=== PATIENT | female | born 1985 | race Caucasian/White ===

== ENCOUNTER 2016-08-18 21:13 | Inpatient (IN) | payer OTHER ==
[2016-08-19 14:03] LABS: Hematocrit 40 % (35-47); Hemoglobin 13.7 g/dl (12.0-16.0); Mean Corpuscular HGB Conc 34 g/dl (31-36); Mean Corpuscular Hemoglobin 28 pg (27-31); Mean Corpuscular Volume 81 fL (80-97); Mean Platelet Volume 8 um3 (7.4-10.4); Red Blood Count 4.96 10^6/ul (4.0-5.4); Red Cell Distribution Width 16 % (10.5-15)
[2016-08-19] MEDS ORDERED: OBEPIDURAL* 250 ML ONE (14:18)
[2016-08-19] MEDS ORDERED: Famotidine TAB* 20 MG PO PRN (15:04)
[2016-08-19] MEDS ORDERED: Sodium Citrate/Citric Acid* 15 ML UDC PO PRN (15:04)
[2016-08-19] MEDS ORDERED: Phenylephrine IV* 40 MCG/ML 10 ML SYRINGE IV PUSH PRN ×2 (15:04)
[2016-08-19] MEDS ORDERED: ceFOXitin 2 GM IVPREMIX* 2 GM/50 ML BAG ONE (15:37)
[2016-08-19] MEDS ORDERED: Sodium Citrate/Citric Acid* 15 ML UDC ONE (15:37)
[2016-08-19] MEDS ORDERED: Sodium Bicarbonate 8.4% SYR* 10 ML SYRINGE ONE (15:52)
[2016-08-19] MEDS ORDERED: Lidocaine 2% EPI 1:200000 MPF* 20 ML VIAL ONE (15:52)
[2016-08-19] MEDS ORDERED: ceFOXitin 2 GM IVPREMIX* 2 GM/50 ML BAG IVPB ONE (16:00)
[2016-08-19] MEDS ORDERED: OBEPIDURAL* 250 ML EPIDURAL SCH (16:00)
[2016-08-19] MEDS ORDERED: Naloxone* 0.4 MG/ML 1 ML VIAL IV PRN (16:23)
[2016-08-19] MEDS ORDERED: OXYTOCIN* 10 UNITS/ML 1 ML VIAL ONE (16:24)
[2016-08-19] MEDS ORDERED: Morphine PF AMP (0.5MG/ML)* 5 MG/10 ML AMP ONE (16:30)
[2016-08-19] MEDS ORDERED: DiMENhydriNATE IV* 50 MG/ML VIAL IV PUSH PRN (16:33)
[2016-08-19] MEDS ORDERED: oxyCODONE/Acetamin 5/325 MG* TAB PO PRN (16:33)
[2016-08-19] MEDS ORDERED: Nalbuphine* 20 MG/ML 1 ML VIAL IV PRN (16:33)
[2016-08-19] MEDS ORDERED: Zolpidem TAB* 5 MG PO PRN (16:55)
[2016-08-19] MEDS ORDERED: Glycerin ADULT SUPP PR PRN (16:55)
[2016-08-19] MEDS ORDERED: Witch Hazel PAD* JAR TOPICAL PRN (16:55)
[2016-08-19] MEDS ORDERED: Acetaminophen TAB* 325 MG PO PRN (16:55)
[2016-08-19] MEDS ORDERED: Dibucaine 1% 28.35 GM TUBE PR PRN (16:55)
[2016-08-19] MEDS: Simethicone TAB* 80 MG TAB.CHEW PO SCH (21:19)
[2016-08-19] MEDS: Docusate CAP* 100 MG PO SCH (21:19)
[2016-08-19] MEDS: Ibuprofen TAB* 600 MG PO SCH (21:23)
--- NOTE | 2016-08-20 01:31 | OP ---
DATE OF OPERATION: 08/19/16 - ROOM #117 DATE OF : 81 SURGEON: Oscar Rachel MD ASSISTANTS: 1. Madie Flores, certified nurse feed handler. 2. Silvia Dockery, licensed optician. ANESTHESIA: Epidural. PRE-OP DIAGNOSIS: Intrauterine at 43 weeks estimated gestational age with arrest of dilation in the first stage of labor. POST-OP DIAGNOSIS: Intrauterine at 43 weeks estimated gestational age with arrest of dilation in the first stage of labor. OPERATIVE PROCEDURE: Primary low transverse section. ESTIMATED BLOOD LOSS: 600 cc. URINE OUTPUT: 250 cc of clear urine. CRYSTALLOID: She received 1500 cc of IV crystalloid fluid. FINDINGS: Delivery of a viable male infant over thick meconium fluid with the nuchal cord x1, weighing 8 pounds 11 ounces and Apgars of 8 and 9. The placenta was grossly intact. The uterus, adnexa, bowel and bladder were within normal limits. SPECIMEN SENT TO PATHOLOGY: Placenta and cord blood. DESCRIPTION OF PROCEDURE: The patient was taken to the operating room where she was identified. She was placed on the operating table where an epidural anesthetic was obtained without difficulty. She was then placed in the supine position with a leftward tilt, prepped and draped in a normal sterile fashion. A Pfannenstiel skin incision was then made with the knife and carried through to the underlying layer of fascia. The fascia was then nicked in the midline and extended laterally with curved Hunter scissors. The fascia was then grasped superiorly and inferiorly with Lisa clamps, dissected off sharply from the rectus muscle. The rectus muscle was in the midline bluntly. The peritoneum was identified, grasped with pickups and entered sharply with Metzenbaum scissors and extended laterally bluntly. A bladder blade was inserted in the patient's abdomen. A low transverse skin incision was made with the knife 4 cm above the bladder reflection. The uterine incision was then extended laterally with bandage scissors and the fluid was noted to be meconium stained with thick meconium fluid. The infant's head was then grasped and delivered atraumatically. The nose and mouth were suctioned at the incision sites. Nuchal cord x1 was reduced. The rest of the infant's body was then delivered. The cord was clamped and cut and infant was handed off to the awaiting window glass cutter off. Cord bloods were obtained. The placenta was then removed manually. The uterus was then exteriorized, cleared of clot and debris using moist laparotomy sponges. The uterine incision at this point was closed using 0 Polysorb sutures in a running locked fashion with the second imbricating layer of 0 Polysorb suture. Hemostasis was noted at the uterine incision. Now the uterus was then returned to the patient's abdomen. The gutters were then cleaned off all clot and debris using moist laparotomy sponges. All the sponges were removed from the patient's abdomen. The peritoneum was then closed using 3-0 Polysorb suture in a running fashion. The fascia was closed using 0 Polysorb suture in a running fashion. Sergio's fascia was closed using interrupted stitch of 3-0 Polysorb suture and the skin was closed with 4-0 Monocryl in a subcuticular stitch. The patient tolerated the procedure well. Sponge, lap, and needle counts were correct x2. She was then transferred to recovery room area in stable condition. CC: Madie Flores CNM, [facility] * [id number]/[facility] #: [id number] ROSY
[2016-08-20] MEDS: Simethicone TAB* 80 MG TAB.CHEW PO SCH ×5 (03:52→20:43)
[2016-08-20] MEDS: Ibuprofen TAB* 600 MG PO SCH ×2 (05:30→05:31)
[2016-08-20 07:45] LABS: Hematocrit 37 % (35-47); Hemoglobin 12.1 g/dl (12.0-16.0); Mean Corpuscular HGB Conc 33 g/dl (31-36); Mean Corpuscular Hemoglobin 28 pg (27-31); Mean Corpuscular Volume 83 fL (80-97); Mean Platelet Volume 8 um3 (7.4-10.4); Red Blood Count 4.39 10^6/ul (4.0-5.4); Red Cell Distribution Width 16 % (10.5-15)
[2016-08-20] MEDS: Ferrous Gluconate TAB* 324 MG TAB PO SCH ×2 (07:47→20:43)
[2016-08-20] MEDS: Docusate CAP* 100 MG PO SCH ×3 (07:51→20:43)
[2016-08-20] MEDS: Ibuprofen TAB* 600 MG PO PRN ×3 (07:51→20:44)
[2016-08-20] MEDS ORDERED: oxyCODONE/Acetamin 5/325 MG* TAB PO PRN (08:23)
[2016-08-20] MEDS: oxyCODONE/Acetamin 5/325 MG* TAB PO PRN (17:10)
[2016-08-21] MEDS: oxyCODONE/Acetamin 5/325 MG* TAB PO PRN ×5 (00:19→20:56)
[2016-08-21] MEDS: Ibuprofen TAB* 600 MG PO PRN ×3 (05:08→20:56)
[2016-08-21] MEDS: Docusate CAP* 100 MG PO SCH ×3 (09:22→20:56)
[2016-08-21] MEDS: Simethicone TAB* 80 MG TAB.CHEW PO SCH ×3 (09:22→20:56)
--- NOTE | 2016-08-21 12:49 | PTEDU ---
Patient Name: ESTEE LINTON ESTEE LINTON selected video: Never Ever Shake a Baby to view on 08/21/2016 at 12:49:12 PM f rom [id number]
--- NOTE | 2016-08-21 13:01 | PTEDU ---
Patient Name: ESTEE LINTON ESTEE LINTON selected video: BBOB: Nurturing Your Gorgeous \T\Growing Baby by to view on 08/21/2016 at 1:00:42 PM from [email or web address]
--- NOTE | 2016-08-21 13:03 | PTEDU ---
Patient Name: ESTEE LINTON ESTEE LINTON selected video: BBOB: Bonding Through Infant Massage to view on 08/21/2016 at 1:03:04 PM from [email or web address]
[2016-08-21 20:11] VITALS: BP 113/60
[2016-08-22] MEDS: Simethicone TAB* 80 MG TAB.CHEW PO SCH ×2 (00:23→09:04)
[2016-08-22] MEDS: oxyCODONE/Acetamin 5/325 MG* TAB PO PRN (03:11)
[2016-08-22] MEDS: Ibuprofen TAB* 600 MG PO PRN ×2 (03:13→09:06)
== END 2016-08-22 11:08 | disposition home or self-care (01) | DRG 540 ==
LOC: MCHOBOUT 21:13 → MCHOB 08-19 02:57
PROVIDERS: ADMIT Obstetrics & Gynecology; ATTEND Obstetrics & Gynecology
PROC: 10907ZC Drainage of Amniotic Fluid, Therapeutic from Products of Conception, Via Natural or Artificial Opening (ICD-10-PCS; 2016-08-19)
PROC: 10D00Z1 Extraction of Products of Conception, Low, Open Approach (ICD-10-PCS; principal; 2016-08-19 15:59)
DX: O62.1 Secondary uterine inertia (principal); F32.9 Major depressive disorder, single episode, unspecified; O48.1 Prolonged pregnancy; O62.0 Primary inadequate contractions; O99.344 Other mental disorders complicating childbirth; O77.0 Labor and delivery complicated by meconium in amniotic fluid; O69.81X0 Labor and delivery complicated by cord around neck, without compression, not applicable or unspecified; Z37.0 Single live birth; Z3A.49 Greater than 42 weeks gestation of pregnancy
CPT/HCPCS: 36415; 85025; 85027; 86850; 86900; 86901; 88307; A9270-GY; J0694; J2590